=== PATIENT | male | born 1970 | race American Indian/Alaskan Native ===

== ENCOUNTER 2018-06-13 03:05 | Emergency (ER) | payer OTHER ==
[2018-06-13 06:43] VITALS: BP 127/85
[2018-06-13] MEDS ORDERED: ULTRAM ONE (06:57)
[2018-06-13] MEDS ORDERED: MOTRIN ONE (06:57)
[2018-06-13] MEDS ORDERED: MOTRIN PO ONE (07:01)
[2018-06-13] MEDS ORDERED: ULTRAM PO ONE (07:01)
--- NOTE | 2018-06-13 08:27 | XRay Report ---
FINAL REPORT EXAM: XR SHOULDER 2+V LT HISTORY: left shoulder pain COMPARISONS: None. FINDINGS: Three views left shoulder Left glenohumeral joint appears intact. Mild acromioclavicular osteoarthrosis. Acromioclavicular and coracoclavicular intervals are within normal limits. No displaced fracture. Incomplete evaluation of the adjacent left lung is unremarkable. IMPRESSION: Mild acromioclavicular osteoarthrosis. No acute findings
--- NOTE | 2018-06-13 08:28 | XRay Report ---
FINAL REPORT EXAM: XR ELBOW 2V LT HISTORY: left elbow pain COMPARISONS: None. FINDINGS: AP and lateral views left elbow No bone lesion, periosteal reaction, or fracture. No deformity or gross malalignment. Very small triceps insertional enthesophytes at the olecranon. No elbow joint effusion. Mild ulnar trochlear osteoarthrosis. IMPRESSION: No acute left elbow findings.
--- NOTE | 2018-06-13 08:28 | XRay Report ---
FINAL REPORT EXAM: XR SPINE CERVICAL 2-3V HISTORY: neck pain COMPARISONS: None FINDINGS: Three views of the cervical spine Cervical lordosis is within normal limits. Mild sequela of cervical disc degeneration at C4-C5 and C5-C6. Vertebral body heights and intervertebral disc spaces are otherwise preserved. No fractures. Prevertebral soft tissues are within normal limits. Incomplete evaluation of the lung apices is unremarkable. IMPRESSION: No acute findings. Mild mid to lower cervical sequela of disc degeneration.
--- NOTE | 2018-06-13 08:46 | Emergency Department Report ---
ED Upper Extremity Inj HPI - General Chief Complaint: Fall Stated Complaint: L. ARM & SHOULDER HURT FROM FALL Time Seen by Provider: 06/13/18 07:07 Source: patient Mode of arrival: Ambulatory Limitations: No Limitations - History of Present Illness Initial Comments: This is a 47-year-old -[place] male who presents with left shoulder, left elbow, and neck pain from a fall this morning. 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 Patient states when he fell he landed on the left upper extremity and he heard a pop. Patient states it was very difficult to move left arm pressure to stay. Patient reports pain is 10 out of 10 and sharp in intensity. Patient reports pain is worse with movement. He notified his job and he stops him over for evaluation. Patient denies loss of consciousness, numbness or tingling, deformity, erythema or bruising, nausea or vomiting, chest pain, and shortness of breath. MD Complaint: Injury to:: left, shoulder, elbow -: This morning Time: 01:40 Other Extremity Injury: Elbow: Left, Shoulder: Left Other Injuries: neck (bilateral neck) Handedness: right Place: work Severity scale (0 -10): 10 Improves With: immobilization Worsens With: movement of extremity Context: fall Associated Symptoms: neck pain (bilateral neck pain) - Related Data Previous Rx's Medication Instructions Recorded Last Taken Type Cyclobenzaprine HCl [Flexeril 5 MG 5 mg PO TID PRN #15 tab 06/13/18 Unknown Rx TAB] Ibuprofen [Motrin 800 MG tab] 800 mg PO Q8HR PRN #15 tablet 06/13/18 Unknown Rx Allergies Allergy/AdvReac Type Severity Reaction Status Date / Time No Known Allergies Allergy Unverified 06/13/18 06:43 ED Review of Systems ROS: Stated complaint: L. ARM & SHOULDER HURT FROM FALL Other details as noted in HPI Constitutional: denies: chills, fever Respiratory: denies: cough, shortness of breath, wheezing Cardiovascular: denies: chest pain, palpitations Gastrointestinal: denies: abdominal pain, nausea, diarrhea Musculoskeletal: back pain (cervical neck pain bilaterally), arthralgia (left shoulder and left elbow pain). denies: joint swelling Skin: denies: rash, lesions Neurological: denies: headache, weakness, numbness, paresthesias Psychiatric: denies: anxiety, depression ED Past Medical Hx - Past Medical History Previous Medical History?: No - Surgical History Past Surgical History?: No - Social History Smoking Status: Never Smoker Substance Use Type: None - Medications Home Medications: Home Medications Medication Instructions Recorded Confirmed Last Taken Type Cyclobenzaprine HCl [Flexeril 5 MG 5 mg PO TID PRN #15 tab 06/13/18 Unknown Rx TAB] Ibuprofen [Motrin 800 MG tab] 800 mg PO Q8HR PRN #15 tablet 06/13/18 Unknown Rx ED Physical Exam - General Limitations: No Limitations General appearance: alert, in no apparent distress - Neck Neck exam: Present: tenderness (bilateral trapezius tenderness), full ROM. Absent: meningismus, lymphadenopathy, thyromegaly - Respiratory Respiratory exam: Present: normal lung sounds bilaterally. Absent: respiratory distress, wheezes, rales, rhonchi, stridor, accessory muscle use - Cardiovascular Cardiovascular Exam: Present: regular rate, normal rhythm. Absent: systolic murmur, diastolic murmur, rubs, gallop - GI/Abdominal GI/Abdominal exam: Present: soft, normal bowel sounds. Absent: organomegaly, mass - Extremities Exam Extremities exam: Present: normal capillary refill. Absent: pedal edema, joint swelling, calf tenderness - Expanded Upper Extremity Exam Left Shoulder Exam: Present: tenderness over AC joint. Absent: full ROM (limited by pain), swelling, abrasion, laceration, ecchymosis, deformity, crepidus, dislocation, erythema Upper Arm exam: Present: normal inspection, full ROM Elbow exam: Present: normal inspection, full ROM, tenderness over radial head. Absent: swelling, abrasion, laceration, ecchymosis, deformity, dislocation, erythema, effusion, pain w/ pronation/supination Forearm Wrist exam: Present: normal inspection, full ROM. Absent: tenderness, swelling, abrasion, laceration, ecchymosis, deformity, crepidus, dislocation, erythema, tenderness over anatomical snuff box, pain with axial thumb loading Hand Wrist exam: Present: normal inspection, full ROM Neuro motor exam: Present: wrist extension intact, thumb opposition intact, thumb IP flexion intact, thumb adduction intact, fingers 2-5 abduction intact Neurosensory exam: Present: radial nerve intact, ulnar nerve intact, median nerve intact Vascular: Present: normal capillary refill, radial pulse - Neurological Exam Neurological exam: Present: alert, oriented X3, normal gait - Psychiatric Psychiatric exam: Present: normal affect, normal mood - Skin Skin exam: Present: warm, dry, intact, normal color. Absent: rash ED Course Vital Signs 06/13/18 06/13/18 06:38 07:02 Temperature 98.6 F Pulse Rate 75 Respiratory 16 18 Rate Blood Pressure 127/85 O2 Sat by Pulse 100 Oximetry ED Medical Decision Making - Radiology Data Radiology results: report reviewed EXAM: XR SHOULDER 2+V LT HISTORY: left shoulder pain COMPARISONS: None. FINDINGS: Three views left shoulder Left glenohumeral joint appears intact. Mild acromioclavicular osteoarthrosis. Acromioclavicular and coracoclavicular intervals are within normal limits. No displaced fracture. Incomplete evaluation of the adjacent left lung is unremarkable. IMPRESSION: Mild acromioclavicular osteoarthrosis. No acute findings EXAM: XR ELBOW 2V LT HISTORY: left elbow pain COMPARISONS: None. FINDINGS: AP and lateral views left elbow No bone lesion, periosteal reaction, or fracture. No deformity or gross malalignment. Very small triceps insertional enthesophytes at the olecranon. No elbow joint effusion. Mild ulnar trochlear osteoarthrosis. IMPRESSION: No acute left elbow findings. EXAM: XR SPINE CERVICAL 2-3V HISTORY: neck pain COMPARISONS: None FINDINGS: Three views of the cervical spine Cervical lordosis is within normal limits. Mild sequela of cervical disc degeneration at C4-C5 and C5-C6. Vertebral body heights and intervertebral disc spaces are otherwise preserved. No fractures. Prevertebral soft tissues are within normal limits. Incomplete evaluation of the lung apices is unremarkable. IMPRESSION: No acute findings. Mild mid to lower cervical sequela of disc degeneration. - Medical Decision Making This is a 47 y.o. male presents with left shoulder, left elbow, bilateral neck tenderness from a fall this morning and at work. Patient was examined by me. Vitals are normal and patient is in no acute distress. Patient has no past medical history. I obtained x-rays of left shoulder, left elbow, and see spine. X-rays dictated prior radiologist's report reviewed by myself. Mild acromioclavicular osteoarthrosis. No acute findings. No acute left elbow findings. No acute findings. Mild mid to lower cervical sequela of disc degeneration. Patient informed of results. Start ibuprofen and cyclobenzaprine for muscle strain of left shoulder and trapezius muscles. Plan discussed with patient to discharge home and treat outpatient. He agrees with ER plan. Patient discharged home in stable condition. Follow up with PCP in 2-3 days. Critical care attestation.: If time is entered above; I have spent that time in minutes in the direct care of this critically ill patient, excluding procedure time. ED Disposition Clinical Impression: Left elbow pain, Neck pain, bilateral, Strain of cervical portion of both trapezius muscles Left shoulder pain Qualifiers: Chronicity: acute Qualified Code(s): M25.512 - Pain in left shoulder Muscle strain of left shoulder Qualifiers: Encounter type: sequela Qualified Code(s): S46.912S - Strain of unspecified muscle, fascia and tendon at shoulder and upper arm level, left arm, sequela Disposition: TO HOME OR SELFCARE Is pt being admited?: No Does the pt Need Aspirin: No Condition: Stable Instructions: Muscle Strain (ED), Cervical Spine Strain (ED), Arthralgia (ED) Additional Instructions: Rest Use ice or heat on affected area for 20 minutes and off for 2 hours. Take pain medication as needed for pain. Don't drive or operate heavy machinery while taking muscle relaxers because they may cause drowsiness. Follow up with Primary Care Provider in 2-3 days. Prescriptions: Cyclobenzaprine HCl [Flexeril 5 MG TAB] 5 mg PO TID PRN #15 tab PRN Reason: Muscle Spasm Ibuprofen [Motrin 800 MG tab] 800 mg PO Q8HR PRN #15 tablet PRN Reason: Pain , Severe (7-10) Referrals: [facility] [Outside] - 3-5 Days [facility] [Outside] - 3-5 Days COURTNEY RUBIO MD [Staff Physician] - 3-5 Days Forms: Work/School Release Form(ED) Time of Disposition: 08:55 Print Language: BULGARIAN
== END 2018-06-13 09:14 | disposition home or self-care (01) ==
LOC: ED 03:05
DX: S46.912A Strain of unspecified muscle, fascia and tendon at shoulder and upper arm level, left arm, initial encounter (principal); S46.912S Strain of unspecified muscle, fascia and tendon at shoulder and upper arm level, left arm, sequela; S16.1XXA Strain of muscle, fascia and tendon at neck level, initial encounter; M25.522 Pain in left elbow; W01.0XXA Fall on same level from slipping, tripping and stumbling without subsequent striking against object, initial encounter; Y93.89 Activity, other specified; Y99.0 Civilian activity done for income or pay; Y92.69 Other specified industrial and construction area as the place of occurrence of the external cause
CPT/HCPCS: 72040; 99283

== ENCOUNTER 2021-02-03 09:32 | Emergency (ER) | payer OTHER ==
[2021-02-03] MEDS ORDERED: IBUPROFEN 800 MG TAB PO ONE (10:38)
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
[2021-02-03 11:09] VITALS: BP 131/85
== END 2021-02-03 11:09 | disposition home or self-care (01) ==
LOC: ED 09:32
DX: Z04.1 Encounter for examination and observation following transport accident (principal); F17.200 Nicotine dependence, unspecified, uncomplicated; Z79.899 Other long term (current) drug therapy; V49.49XA Driver injured in collision with other motor vehicles in traffic accident, initial encounter; Y92.410 Unspecified street and highway as the place of occurrence of the external cause; Y93.89 Activity, other specified; Y99.8 Other external cause status
CPT/HCPCS: 99282